=== PATIENT | female | born 1960 | race Caucasian/White ===

== ENCOUNTER 2019-01-27 09:56 | Day surgery (SDC) | payer OTHER ==
[~2019-01-27] VITALS: Ht 165.1 cm; Wt 74.8 kg
--- NOTE | ~2019-01-27 | OP ---
PATIENT NAME: YULIANA LEDESMA MEDICAL RECORD: [id number] :58 [facility] AD[facility] DATE: SURGEON: MELIZA KOEHLER DATE OF OPERATION: 01/27/2019 SURGEON: Meliza Koehler DPM PREOPERATIVE DIAGNOSIS: Soft tissue mass, left foot. POSTOPERATIVE DIAGNOSIS: Lipoma, left foot. PROCEDURE: Excision of lipoma, left foot. ANESTHESIA: Local with monitored anesthesia care. HEMOSTASIS: Pneumatic ankle tourniquet inflated to 250 mmHg. ESTIMATED BLOOD LOSS: Minimal. MATERIALS: 3-0 Vicryl, 4-0 nylon. INJECTABLES: 10 cc of 0.5% bupivacaine plain. The patient has longstanding history of pain associated with a mass on the plantar surface of left foot that provides with pain with ambulation. She has tried offloading with different shoes and padding to no avail. She is here today for surgical excision of this mass. We discussed the proposed procedure, risks and benefits were discussed. Complications were reviewed. All questions were answered. She was appropriately consented for the above-mentioned procedure. DESCRIPTION OF PROCEDURE: The patient was brought in the operating room and placed on the operating table in supine position. A timeout was called with Dr. Koehler, who identified the, surgical site, and surgery to be performed. Once appropriate anesthesia was obtained, the foot was prepped and draped in the usual aseptic manner. Attention was directed to the plantar surface of the first metatarsal head area where a soft tissue mass was identified. A 3 cm linear incision was made directly over the mass. The incision was carried to soft tissue with care being taken to retract all vital neurovascular structures. All bleeders were cauterized along the way. A lipoma was identified at the base of the incision utilizing both sharp and blunt dissection, the lipoma was surgically excised. The surgical site was then investigated for any remaining pathological tissue and none was noted. The surgical site was then irrigated with copious amounts of normal sterile saline via bulb syringe. The fascia was then reapproximated and coapted using 3-0 Vicryl. The subQ was then reapproximated and coapted using 3-0 Vicryl. The skin was reapproximated and coapted using 4-0 nylon. A dressing consisting of Xeroform, 4 x 4's, Kerlix, and Matthew bandage was applied to the left foot. The patient tolerated the procedure and anesthesia well. She left the operating room with vital signs stable and capillary refill time intact. The patient was discharged home with instructions to ice and elevate the left OPERATIVE REPORT [id number] YULIANA LEDESMA. She was dispensed a postop shoe to further help offload the area. She has my cell phone number for any afterhour difficulties. This mass measured less than 1.5 cm in diameter and it was sent to pathology for further analysis. TRANSINT:[id number] Voice Confirmation ID: [id number] DOCUMENT ID: [id number] MELIZA KOEHLER CC: [id number] DICTATION DATE: 01/27/19 1601 [employer] WORKER: 01/27/192212 [facility] [place] 01/27/19 [id number] [place] [address]
[~2019-01-27 09:56] MED LIST: COZAAR25 MG PO; LEVOXYL50 MCG PO
[2019-01-27 10:26] LABS: HEMATOCRIT 34.5 % (36.0-48.0); HEMOGLOBIN 11.1 g/dL (12-16); MCHC 32.2 g/dL (31.0-37.0); MCV 71.6 fL (80.0-100.0); MEAN PLATELET VOLUME 8.1 fL (7.4-10.4); RBC 4.82 10x6/uL (4.00-5.40); RDW 14.4 % (11.5-14.5)
[2019-01-27 11:28] VITALS: BP 154/107; Ht 165.1 cm; Wt 74.8 kg
== END 2019-01-27 15:20 | disposition home or self-care (01) ==
LOC: D.OPS 09:56 → D.PAN 12:15 → D.OPS 12:15 → D.PAN 12:30 → D.OPS 12:30
PROVIDERS: Anesthesiology; ATTEND Podiatrist
DX: D17.24 Benign lipomatous neoplasm of skin and subcutaneous tissue of left leg (principal)